=== PATIENT | female | born 1960 | race Hispanic/Latino ===

== ENCOUNTER 2022-09-06 10:02 | Emergency (ER) | payer SELFPAY ==
[2022-09-06] VITALS (10 sets, daily range): BP systolic 171–228; BP diastolic 78–137
[~2022-09-06] VITALS: Ht 160 cm; Wt 84.0 kg
[~2022-09-06 10:02] MED LIST: AMOXICILLIN500 MG PO; GLIPIZIDE5 MG OR; IRON325 MG OR; LISINOPRIL10 MG OR; NO MEDS; NORCO1 TA1 PO; UNK BP MEDICATION
[2022-09-06] MEDS ORDERED: METRONIDAZOLE500 MG PO ×2 (10:26→11:46)
[2022-09-06] MEDS ORDERED: ZOFRAN4 MG/TAB PO ×2 (10:26→11:46)
[2022-09-06] MEDS ORDERED: BACTRIM DS1 TAB PO ×2 (10:26→11:46)
== END 2022-09-06 11:52 | disposition home or self-care (01) | DRG 605 ==
LOC: ED 10:02
DX: S61.251A Open bite of left index finger without damage to nail, initial encounter (principal); L03.012 Cellulitis of left finger; W55.01XA Bitten by cat, initial encounter